=== PATIENT | male | born 1965 | race Caucasian/White ===

== ENCOUNTER 2016-11-19 12:37 | Emergency (ER) | payer BC ==
[~2016-11-19] VITALS: Ht 188 cm; Wt 125.5 kg
[~2016-11-19 12:37] MED LIST: ALBUAER19 INH; DOXY100C76 PO; FEXO1TAB46 PO; FLUT0.15 NAE; FLUT110A INH
[2016-11-19 12:48] VITALS: Ht 188 cm; Wt 125.5 kg
[2016-11-19] MEDS ORDERED: RABIES IMMUNE GLOBULIN (HUMAN) 150 INTER.UNIT/ML 2 ML VIAL IM. ONE (13:00)
[2016-11-19] MEDS ORDERED: RABIES VACCINE (IMOVAX) HUMAN DIPL CELL 2.5 INTER.UNIT/ML SYR IM. ONE (13:00)
[2016-11-19 15:57] VITALS: BP 155/99; PULSE 92; TEMP 37.4; O2SAT 97
--- NOTE | 2016-11-19 16:43 | EMERGENCY ROOM VISIT NOTE ---
History First contact with patient: 12:52 Chief Complaint: RABIES VACCINE Stated Complaint: NEED RABIES VACCINATION History of Present Illness The patient is a 51 year old male who presents to the Emergency Room to undergo the rabies postexposure prophylaxis series. The family dog got into a fight yesterday morning with a raccoon. The raccoon has since been tested positive for rabies. The patient did have a direct exposure to the dog, and was sent here for further management. The patient is certain that the dog has not bitten any family members, and the patient has no current open wounds. Review of Systems 6 system review was performed and was negative except for pertinent positives and negatives as indicated in history of present illness Past Medical/Surgical History Medical Problems: (1) Asthma (2) Diffuse Large B-Cell Lymphoma, Nodes Of Head, Face, And Neck (3) Nicotine Dependence, Chewing Tobacco, Uncomplicated (4) Tobacco Use Surgical Problems: (1) No history of previous surgery Family History FH: diabetes mellitus FH: heart disease Social History Smoking Status: Never Smoker Alcohol Use: none Marital Status: Housing Status: lives with family Occupation Status: employed Current/Historical Medications Scheduled Fexofenadine Hcl (Brittni), 180 MG PO QAM Fluticasone Propionate Hfa (Flovent Hfa 110MCG Inhaler), 2 PUFF INH BID Fluticasone Propionate (Nasal) (Flonase Allergy Relief), 2 SPRAY DELIA QAM Scheduled PRN Albuterol Inhaler (Ventolin Inhaler), 2 PUFFS INH QID PRN for PRN Allergies Coded Allergies: NO KNOWN DRUG ALLERGIES (Verified Allergy, Unknown, NONE, 10/22/15) Physical Exam Vital Signs Date Time Temp Pulse Resp B/P Pulse Ox O2 Delivery O2 Flow Rate FiO2 11/19/16 15:57 37.4 92 18 155/99 97 11/19/16 15:55 92 18 155/99 97 Room Air 11/19/16 12:48 37.4 100 18 216/116 97 Room Air Pain Rating (0-10): 0 Physical Exam CONSTITUTIONAL: Healthy and well nourished. Alert and oriented X 3 with positive affect. HEENT: Normocephalic, atraumatic. Pupils equal, round and reactive. NECK: Full active range of motion without discomfort. RESPIRATORY: Clear to auscultation bilaterally with no wheezing, crackles, rhonchi or stridor. CARDIOVASCULAR: Regular rate and rhythm with no murmurs, rubs or gallops. GASTROINTESTINAL: Bowel sounds present in all quadrants. MUSCULOSKELETAL: Full range of motion of all joints without discomfort. INTEGUMENTARY: No rash or other significant dermatologic conditions noted. NEUROLOGIC: No focal neurologic deficits noted. Medical Decision & Procedures Medications Administered Medications (Trade) Dose Ordered Sig/Brooke Route Start Time Stop Time Status Last Admin Dose Admin Rabies Vaccine Human Diploid Cell (Imovax Rabies) 2.5 interunit ONCE ONCE IM. 11/19/16 13:00 11/19/16 13:01 DC 11/19/16 13:46 2.5 INTERUNIT Rabies Immune Globulin (Imogam Rabies Inj) 2,510 interunit ONCE ONCE IM. 11/19/16 13:00 11/19/16 13:01 DC 11/19/16 14:26 2,510 INTERUNIT ED Course Patient history and physical exam were performed. Nurse's notes were reviewed. The patient was administered human rabies immunoglobulin 20 interunits per kilogram, along with Imovax without any adverse reaction. Because the patient does have a history of lymphoma, he was encouraged to return on days 3, 7, 14 and 28. The patient was happy with plan of care, and voiced understanding of all discharge instructions. Medical Decision Impression Primary Impression: Rabies, need for prophylactic vaccination against Departure Information Dispostion Home / Self-Care Condition GOOD Forms HOME CARE DOCUMENTATION FORM, IMPORTANT VISIT INFORMATION Patient Instructions [facility] Additional Instructions Return on the following days for subsequent injections: Day 3 (11/22) Day 7 (11/26) Day 14 (12/03) Day 28 (12/17)
== END 2016-11-19 15:57 | disposition home or self-care (01) ==
LOC: C.EDB 12:40 → C.EDD 15:57
DX: Z20.3 Contact with and (suspected) exposure to rabies (principal); Z23 Encounter for immunization; J45.909 Unspecified asthma, uncomplicated; F17.200 Nicotine dependence, unspecified, uncomplicated; Z85.72 Personal history of non-Hodgkin lymphomas; Z83.3 Family history of diabetes mellitus; Z82.49 Family history of ischemic heart disease and other diseases of the circulatory system

== ENCOUNTER 2016-11-21 13:16 | Emergency (ER) | payer BC ==
[~2016-11-21 13:16] MED LIST changes: -DOXY100C76 PO
[2016-11-21 13:36] VITALS: TEMP 37
[2016-11-21] MEDS ORDERED: RABIES VACCINE (IMOVAX) HUMAN DIPL CELL 2.5 INTER.UNIT/ML SYR IM. ONE (14:15)
--- NOTE | 2016-11-21 14:51 | EMERGENCY ROOM VISIT NOTE ---
ED Visit Note First contact with patient: 13:59 Chief Complaint: Rabies Return Visit History of Present Illness: This patient is a 51-year-old male who presents to the Emergency Department accompanied by his family for their second Rabies Vaccination Injections. The patient reports that they had no reaction to previous injection. Patient denies the development of any fevers, chills, sweats, or URI symptoms. Medications: Unchanged from previous visit. Allergies: No known drug allergies PMH: Unchanged from previous visit. SHx: The patient lives locally with his family. ROS: All pertinent positive and negative review of systems are appropriately documented in the History of Present Illness. Physical Exam: VITAL SIGNS - Vital signs and Nursing Notes were reviewed. GENERAL -this is a 51-year-old male, well-developed, well-nourished, and in no acute distress. SKIN - Without rashes or lesions. CARDIAC - RRR with normal S1 & S2. No murmurs, rubs, or gallops appreciated. RESPIRATORY - Clear to auscultation bilaterally. No wheezes, rales, or rhonchi appreciated. NEURO - Patient is A&Ox3 and communicates appropriately with the provider. ED Course: Previous ED visit note was reviewed by myself prior to patient evaluation. Patient reports no reaction to the previous injection(s). Patient received 2.5 units of Imovax intramuscularly. Patient was observed in the Emergency Department for greater than 20 minutes prior to discharge without signs of reaction. Patient was educated on worrisome symptoms for return visit to the Emergency Department. Patient discharged to home with the intent for follow-up in the Emergency Department as scheduled for the remainder of their injections. I did become aware after the patient had already left the emergency department that the patient had actually arrived one day early for his rabies injection. The patient had arrived with his 2 sons and I had initially assumed that they had arrived on the same day for their first visit. I contacted our pharmacist, who was unsure how this would affect the treatment schedule and recommended contacting the CDC. I did contact the Department of Health and spoke with a advertising account representative there, who did not feel that this would affect the patient's immunity. They did recommend that the patient receive the third vaccination on day 7 according to the original schedule. I did call the patient's house and spoke with his to relay this information. She verbalized understanding of this treatment plan. Impression: Rabies Prophylaxis Discharge Instructions: You were seen in the Emergency Department today for your Rabies Prophylaxis Injection. [] You should continue to follow the Discharge Instructions outlined for you in your initial Emergency Department visit. For pain or fever control, you can use the following qplv-sxl-uguvjni medicines (if >12 yo): - Regular strength (325mg/tab) Tylenol (acetaminophen) 2 tabs every 4-6 hours as needed. Do not exceed 12 tablets in a 24 hour period. Avoid taking more than 4 grams (4000 mg) of Tylenol per day. This includes any other sources of acetaminophen you may take on a regular basis. - Regular strength (200 mg/tab) Advil (ibuprofen) 1-2 tabs every 4-6 hours as needed. Do not exceed a dose of 3200 mg per day. Return to the emergency department if your symptoms worsen despite treatment course outlined above. Current/Historical Medications Scheduled Fexofenadine Hcl (Brittni), 180 MG PO QAM Fluticasone Propionate (Nasal) (Flonase Allergy Relief), 2 SPRAY DELIA QAM Allergies Coded Allergies: NO KNOWN DRUG ALLERGIES (Verified Allergy, Unknown, NONE, 11/21/16) Vital Signs Date Time Temp Pulse Resp B/P Pulse Ox O2 Delivery O2 Flow Rate FiO2 11/21/16 15:11 81 16 152/88 100 11/21/16 13:36 37.0 85 18 160/95 100 Room Air Medications Administered Medications (Trade) Dose Ordered Sig/Brooke Route Start Time Stop Time Status Last Admin Dose Admin Rabies Vaccine Human Diploid Cell (Imovax Rabies) 2.5 interunit ONCE ONCE IM. 11/21/16 14:15 11/21/16 14:16 DC 11/21/16 14:44 2.5 INTERUNIT Departure Information Impression Primary Impression: Rabies, need for prophylactic vaccination against Dispostion Home / Self-Care Condition GOOD Referrals Umesh Jhaveri M.D. (PCP) Patient Instructions My [facility] Additional Instructions You were seen in the Emergency Department today for your Rabies Prophylaxis Injection. [] You should continue to follow the Discharge Instructions outlined for you in your initial Emergency Department visit. For pain or fever control, you can use the following [id number]-dhktcia medicines (if >12 yo): - Regular strength (325mg/tab) Tylenol (acetaminophen) 2 tabs every 4-6 hours as needed. Do not exceed 12 tablets in a 24 hour period. Avoid taking more than 4 grams (4000 mg) of Tylenol per day. This includes any other sources of acetaminophen you may take on a regular basis. - Regular strength (200 mg/tab) Advil (ibuprofen) 1-2 tabs every 4-6 hours as needed. Do not exceed a dose of 3200 mg per day. Return to the emergency department if your symptoms worsen despite treatment course outlined above.
[2016-11-21 15:11] VITALS: BP 152/88; PULSE 81; O2SAT 100
== END 2016-11-21 15:13 | disposition home or self-care (01) ==
LOC: C.EDB 13:17 → C.EDD 15:13
DX: Z29.14 Encounter for prophylactic rabies immune globulin (principal); Z20.3 Contact with and (suspected) exposure to rabies

== ENCOUNTER 2016-11-26 09:12 | Emergency (ER) | payer BC ==
[~2016-11-26] VITALS: Ht 188 cm; Wt 125.0 kg
[~2016-11-26 09:12] MED LIST changes: +DOXY100C76 PO
[2016-11-26 09:24] VITALS: BP 143/84; PULSE 79; TEMP 36.9; O2SAT 96; Ht 188 cm; Wt 125.0 kg
[2016-11-26] MEDS ORDERED: RABIES VACCINE (IMOVAX) HUMAN DIPL CELL 2.5 INTER.UNIT/ML SYR IM. ONE (09:45)
--- NOTE | 2016-11-26 09:46 | EMERGENCY ROOM VISIT NOTE ---
ED Visit Note First contact with patient: 09:31 CHIEF COMPLAINT: Need third rabies vaccine HISTORY OF PRESENT ILLNESS: This 51-year-old male presents the ER for his third rabies vaccine. The patient did not have any problems with her prior vaccines. REVIEW OF SYSTEMS: 6 system review was performed and was negative unless stated otherwise in history of present illness. PMH: The patient is healthy; see chronic problem list. There are no changes from prior ER visit. SOCIAL HISTORY: Patient lives with his family. The patient denies any tobacco or alcohol use. PHYSICAL EXAM: Vital Signs: Were reviewed Reviewed Nurse's notes. GENERAL: 51- year-old white male appears in no acute distress. MENTAL STATUS: Alert and oriented 3. EMERGENCY DEPARTMENT COURSE: The patient was given Imovax. The patient was discharged home in stable condition. DIAGNOSIS: Post exposure rabies prophylaxis DISCHARGE INSTRUCTIONS: Return to the ER in 7 days for final rabies vaccine Current/Historical Medications Scheduled Fexofenadine Hcl (Brittni), 180 MG PO QAM Fluticasone Propionate (Nasal) (Flonase Allergy Relief), 2 SPRAY DELIA QAM Allergies Coded Allergies: NO KNOWN DRUG ALLERGIES (Verified Allergy, Unknown, NONE, 11/21/16) Vital Signs Date Time Temp Pulse Resp B/P Pulse Ox O2 Delivery O2 Flow Rate FiO2 11/26/16 09:24 36.9 79 18 143/84 96 Room Air Departure Information Referrals Umesh Jhaveri M.D. (PCP) Patient Instructions My [facility]
== END 2016-11-26 09:57 | disposition home or self-care (01) ==
LOC: C.EDB 09:15
DX: Z29.14 Encounter for prophylactic rabies immune globulin (principal); Z20.3 Contact with and (suspected) exposure to rabies

== ENCOUNTER 2016-12-03 09:28 | Emergency (ER) | payer BC ==
[~2016-12-03] VITALS: Ht 188 cm; Wt 112.5 kg
[~2016-12-03 09:28] MED LIST changes: -ALBUAER19 INH; -DOXY100C76 PO; -FLUT110A INH
[2016-12-03 09:32] VITALS: TEMP 36.9; Ht 188 cm; Wt 112.5 kg
[2016-12-03] MEDS ORDERED: RABIES VACCINE (IMOVAX) HUMAN DIPL CELL 2.5 INTER.UNIT/ML SYR IM. ONE (10:15)
[2016-12-03 10:48] VITALS: BP 140/87; PULSE 83; O2SAT 96
--- NOTE | 2016-12-04 12:20 | EMERGENCY ROOM VISIT NOTE ---
ED Visit Note First contact with patient: 09:29 Chief Complaint: Rabies immunization. History of Present Illness: Mr. Nicole is a 51-year-old white male who ambulates into the ED accompanied by his son requesting the fourth of his fifth rabies immunization series. Patient reports his family dog was exposed to a raccoon that tested positive for rabies and it was recommended that he prophylactically be treated for the rabies immunization. Patient does report he has had no previous reactions to his immunizations and he is feeling well today. Review of Systems: As noted above in history of present illness. Past Medical History: As previously noted Physical Examination: Vital Signs: Date Time Temp Pulse Resp B/P Pulse Ox O2 Delivery O2 Flow Rate FiO2 12/03/16 10:48 83 17 140/87 96 12/03/16 09:32 36.9 87 18 139/84 95 Room Air GENERAL: 51-year-old male in no acute distress, nontoxic-appearing, afebrile and hemodynamically stable. NEUROLOGICAL: Awake, alert and oriented to person, place and time. Answering questions appropriately and following commands. ED Course: Patient is assessed as noted above. Patient was given 2.5 interunit of rabies vaccination IM. Patient was held and observed and had no reactions to the medication injection. Patient was educated about tonight's visit and instructed on his treatment plan. Clinical Impression: Rabies immunizations. Disposition: Patient discharged home in stable condition accompanied by his son ; prior to departure he was reassessed and subjectively reported that he was pain and symptom-free. Plan: Patient was encouraged to use ibuprofen or acetaminophen as needed for mild symptoms of body aches and/or mild fevers. Patient was encouraged to return to the ED for any fevers above 101F, uncontrolled pain, uncontrolled vomiting or any new/concerning symptoms.
== END 2016-12-03 10:42 | disposition home or self-care (01) ==
LOC: C.EDB 09:28 → C.EDA 10:42
DX: Z29.14 Encounter for prophylactic rabies immune globulin (principal); Z20.3 Contact with and (suspected) exposure to rabies

== ENCOUNTER 2016-12-17 13:17 | Emergency (ER) | payer BC ==
[~2016-12-17] VITALS: Ht 188 cm; Wt 126.4 kg
[2016-12-17 13:22] VITALS: BP 150/89; PULSE 88; TEMP 36.9; O2SAT 95; Ht 188 cm; Wt 126.4 kg
--- NOTE | 2016-12-17 13:43 | EMERGENCY ROOM VISIT NOTE ---
ED Visit Note First contact with patient: 13:32 Chief Complaint: Rabies Return Visit History of Present Illness: This patient is a 51-year-old male who presents to the Emergency Department ambulatory for their final Rabies Vaccination Injections. The patient will receive one additional vaccine due to a history of cancer. The patient reports that they had no reaction to previous injection. Patient denies the development of any fevers, chills, sweats, or URI symptoms. Medications: Unchanged from previous visit. Allergies: No known drug allergies PMH: Unchanged from previous visit. SHx: Patient lives locally with his family. ROS: All pertinent positive and negative review of systems are appropriately documented in the History of Present Illness. Physical Exam: VITAL SIGNS - Vital signs and Nursing Notes were reviewed. GENERAL -this is a 51-year-old male, well-developed, well-nourished, and in no acute distress. SKIN - Without rashes or lesions. CARDIAC - RRR with normal S1 & S2. No murmurs, rubs, or gallops appreciated. RESPIRATORY - Clear to auscultation bilaterally. No wheezes, rales, or rhonchi appreciated. NEURO - Patient is A&Ox3 and communicates appropriately with the provider. ED Course: Previous ED visit note was reviewed by myself prior to patient evaluation. Patient reports no reaction to the previous injection(s). Patient received 2.5 units of Imovax intramuscularly. Patient was observed in the Emergency Department for greater than 20 minutes prior to discharge without signs of reaction. Patient was educated on worrisome symptoms for return visit to the Emergency Department. Patient discharged to home with the intent for follow-up in the Emergency Department as scheduled for the remainder of their injections. Impression: Rabies Prophylaxis Discharge Instructions: You were seen in the Emergency Department today for your Rabies Prophylaxis Injection. This is your last injection in the series. For pain or fever control, you can use the following yvwd-pzq-uglqlfk medicines (if >12 yo): - Regular strength (325mg/tab) Tylenol (acetaminophen) 2 tabs every 4-6 hours as needed. Do not exceed 12 tablets in a 24 hour period. Avoid taking more than 4 grams (4000 mg) of Tylenol per day. This includes any other sources of acetaminophen you may take on a regular basis. - Regular strength (200 mg/tab) Advil (ibuprofen) 1-2 tabs every 4-6 hours as needed. Do not exceed a dose of 3200 mg per day. Return to the emergency department if your symptoms worsen despite treatment course outlined above. Current/Historical Medications Scheduled Fexofenadine Hcl (Brittni), 180 MG PO QAM Fluticasone Propionate (Nasal) (Flonase Allergy Relief), 2 SPRAY DELIA QAM Allergies Coded Allergies: NO KNOWN DRUG ALLERGIES (Verified Allergy, Unknown, NONE, 12/17/16) Vital Signs Date Time Temp Pulse Resp B/P Pulse Ox O2 Delivery O2 Flow Rate FiO2 12/17/16 13:22 36.9 88 18 150/89 95 Room Air Departure Information Impression Primary Impression: Rabies, need for prophylactic vaccination against Dispostion Home / Self-Care Condition GOOD Referrals Umesh Jhaveri M.D. (PCP) Patient Instructions My [facility] Additional Instructions You were seen in the Emergency Department today for your Rabies Prophylaxis Injection. This is your last injection in the series. For pain or fever control, you can use the following mlne-atc-vrsmqvp medicines (if >12 yo): - Regular strength (325mg/tab) Tylenol (acetaminophen) 2 tabs every 4-6 hours as needed. Do not exceed 12 tablets in a 24 hour period. Avoid taking more than 4 grams (4000 mg) of Tylenol per day. This includes any other sources of acetaminophen you may take on a regular basis. - Regular strength (200 mg/tab) Advil (ibuprofen) 1-2 tabs every 4-6 hours as needed. Do not exceed a dose of 3200 mg per day. Return to the emergency department if your symptoms worsen despite treatment course outlined above.
[2016-12-17] MEDS ORDERED: RABIES VACCINE (IMOVAX) HUMAN DIPL CELL 2.5 INTER.UNIT/ML SYR IM. ONE (13:45)
== END 2016-12-17 13:51 | disposition home or self-care (01) ==
LOC: C.EDB 13:19 → C.EDD 13:51
DX: Z29.14 Encounter for prophylactic rabies immune globulin (principal); Z20.3 Contact with and (suspected) exposure to rabies

== ENCOUNTER → 2017-02-25 | Outpatient (CLI) | payer BC ==
--- NOTE | 2017-02-26 05:04 | PAP/PSG TECHNICIAN REPORT ---
[facility] [employer] Worker Polysomnogram Report Study name: None Report date: 02/26/2017 Study date: 02/25/2017 Referring Physician: Anum Galaviz M.D. Name: CATHERINE ANJEL Kourtney Interpreting Physician: Vi Galaviz M.D. Date of : 1965 Auto Body Worker: [facility] Sex: Male Age: 51 StudyType: PSG Weight: 274 lbs Height: 51 years, Height 6' 2" BMI: 35.18 Medications: none Patient History 51 yr. old male here for a titration sleep study to ensure resolution of hypoxemia. Patient had a HST that showed an SAVANNAH of 11.5(18.8 supine). Patients [place] Sleepiness Scale Score is 11/24. Parameters Monitored NPSG: E1-M2, E2-M1, Fp1-M2, Fp2-M1, F3-M2, F4-M2, F4-M1, C3-M2, C4-M2, C4-M1, O1-M2, O2-M2, O2-M1, T3-M2, T4-M1, P3-M2, P4-M1, CHIN1, CHIN2, HR, EKG, Legs, PFLOW, SNOR, FLOW, CFLOW, Tidal Volume, THOR, ABDO, SpO2, PLTH, CPRESS, ETCO2 Wave, ETCO2, pH Sleep Architecture Sleep Stages Time at Lights Off 9:57:35 PM STAGES Time (min.) TST (%) Time at Lights On 4:50:35 AM Wake 37.5 -- Total Recording Time (TRT) 412.50 min. N1 17.5 5 Total Sleep Period (TSP) 410.0 min. N2 239.5 64 Total Sleep Time (TST) 375.0min. N3 69.0 18 Awake Time 37.5 min. REM 49.0 13 Wake after Sleep Onset 35.0 min. Sleep Efficiency (SE) 91 % Sleep Onset Latency (MARIALUISA) 3.0 min. Number of Stage 1 Shifts None Awakenings 19 Stage Changes 89 Number of REM periods 6 REM 49.0 13 REM Latency 84.5 min. NREM 326.0 87 Body Position Analysis Supine Right Left Side Prone Vertical Total Sleep Time (min.) 337.1 22.8 42.5 65.32 0.0 0.0 Total Sleep Time (%) 83% 6% 11% 17 0% N/A% Total Sleep Time REM (min.) 37.5 0.0 11.5 None 0.0 0.0 Total Sleep Time NREM (min.) 272.2 22.8 31.0 None 0.0 0.0 Intermittent Wake (min.) 27.4 0.6 9.4 None 0.0 0.0 Total Sleep Period (%) 82% None None None None None Arousals Myoclonus (PLM) * Events Count Index Events Count Index Spontaneous 3 0 Events Awake (PLMW) 61 97.6 Respiratory 3 0.6 Events Asleep w/ Arousal (PLMA) 18 2.9 PLM 17 3 Events Asleep w/o Arousal (PLMS) 317 50.7 Snoring 6 1 Total Asleep 335 53.6 Total 29 5 Total 396 58 Respiratory Analysis * CA OA MA CH H RERA Total Count 0 0 0 0 22 1 22 Index 0.0 0.0 0.0 0 3.5 0 3.5 Mean Duration 0.0 0.0 0.0 0.00 23.7 20.5 24.1 Longest Duration 0.0 0.0 0.0 0.00 0.0 20.5 40.3 Respiratory Event Summary Total Supine ~Supine Right Left Prone REM NREM Apneas Count 0 0 0 0 0 N/A 0 0 Index 0.0 0 0 0.0 0.0 N/A 0 0 Hypopneas (4% Desat) Count 22 21 1 1 0 N/A 1 21 Index 3.5 4.1 1 2.6 0.0 N/A 1.2 3.9 Apneas & All Hypopneas Count 22 21 1 1 0 N/A 1 21 Index 3.5 4 1 3 0 N/A 1.2 3.9 Respiratory Events ([employer]+All Hyp+RERA) Count 22 21 1 1 0 N/A 1 21 Index 3.5 4 1 2.6 0.0 N/A 1.2 3.9 Respiratory Related Arousal Count 3 21 0 0 0 N/A 0 4 Index 0.6 1 0 0 0 N/A 0 1 Snoring Analysis Supine Right Left Prone REM NREM Total Snore duration 3.7 min Snores count 143 2 0 N/A 3 142 145 Snore mean duration 1.5 Sec Snores index 28 5 0 N/A 3.7 26.1 23.2 TST with snoring (%) 1.0% Desaturation Event Summary: Minimum %SpO2 Event Count Mean/Min/Max Duration(sec.) Desaturation Index % Time In Bed > 90 34 24.9 / 7.3 / 57.0 5.7 95.8 86 - 90 1 10.3 / 10.3 / 10.3 3.8 4.2 81 - 85 0 N/A 0.0 0.0 76 - 80 0 N/A 0.0 0.0 71 - 75 0 N/A 0.0 0.0 66 - 70 0 N/A 0.0 0.0 61 - 65 0 N/A 0.0 0.0 56 - 60 0 N/A 0.0 0.0 51 - 55 0 N/A 0.0 0.0 < 50 0 N/A 0.0 0.0 Total REM NREM Awake <50% 0.0 min. 0.0 min. 0.0 min. 0.0 min. 51 - 60% 0.0 min. 0.0 min. 0.0 min. 0.0 min. 61 - 70% 0.0 min. 0.0 min. 0.0 min. 0.0 min. 71 - 80% 0.0 min. 0.0 min. 0.0 min. 0.0 min. 81 - 90% 16.0 min. 0.0 min. 15.7 min. 0.3 min. 91 - 100% 360.7 min. 45.8 min. 286.5 min. 28.4 min. Average 94 95 93 94 Minimum SpO2 83 92 85 83 Desaturation Event Index 4.9 1.2 4.8 11.2 # Desat. Events below 89% 6 N/A 5 1 Time(%) with Saturation below 89% 0.3 0.0 0.3 0.0 Time(min.) with Saturation below 89% 1.1 0.0 1.0 0.1 Time (mins) REM (mins) NREM (mins) % of TST SpO2 Below 90% 21 N/A N21 1.2 SpO2 Below 88% 2 0 0 0 Heart Rate Analysis Min (bpm) Max (bpm) Average (bpm) Awake 42 127 74 NREM 60 127 72 REM 63 127 71 Overall 60 127 72 Supplemental O2 Values Minimum O2 level: None Value Start Time End Time Auto Body Worker Comments Mr. Nicole slept in the right, left, and supine positions. No cardiac arrhythmia notes. PLMs noted. No bruxism noted. CPAP was initiated at +4 CMH2O room air and up-titrated to a level of +11 CMH2O no Cflex, which nearly eliminated all respiratory events and snoring. Patients own ResMed F10, was used during titration. Mr. Nicole awoke to use the restroom once during the night. Mr. Nicole stated, that was a normal night. The final report will be interpreted and signed by a sleep physician. The completed physician report will then be placed in the patient medical record. Therapy Event: Therapy (cm H20) 4 5 6 7 8 9 10 11 Total Time at Pressure (min.) 9.4 7.1 11.5 117.4 83.3 22.5 15.8 145.6 TST at Pressure (min.) 6.4 7.1 11.5 102.9 75.3 22.0 8.4 141.5 # Periods 1 1 1 1 1 1 1 1 Sleep Onset (min.) 3.0 0.0 0.0 0.0 0.0 0.0 0.0 1.1 REM Onset (min.) N/A N/A N/A 59.0 70.7 N/A N/A 24.1 Sleep Efficiency % 68 100 100 87 90 97 53 97 Wakefulness (%) 31.8 0.0 0.0 12.4 9.6 2.2 46.9 2.8 Wakefulness (min.) 3.0 0.0 0.0 14.5 8.0 0.5 7.4 4.1 NREM 1 (%) 10.6 0.0 4.4 4.3 6.2 3.8 6.3 2.7 NREM 1 (min.) 1.0 0.0 0.5 5.0 5.1 0.9 1.0 4.0 NREM 2 (%) 57.6 100.0 95.6 35.7 74.0 93.9 46.8 57.7 NREM 2 (min.) 5.4 7.1 11.0 41.9 61.7 21.1 7.4 84.0 NREM 3 (%) 0.0 0.0 0.0 37.5 4.2 0.0 0.0 14.8 NREM 3 (min.) 0.0 0.0 0.0 44.0 3.5 0.0 0.0 21.5 REM (%) 0.0 0.0 0.0 10.2 6.0 0.0 0.0 22.0 REM (min.) 0.0 0.0 0.0 12.0 5.0 0.0 0.0 32.0 # Arousals 1 1 2 10 8 0 4 3 Arousal Index 9.3 8.5 10.5 5.8 6.4 0.0 28.6 1.3 # Snore 18 41 22 52 7 2 0 3 Snore Index 167.7 348.3 115.2 30.3 5.6 5.5 0.0 1.3 AHI 9.3 17.0 5.2 1.7 5.6 10.9 21.4 0.4 AHI Supine 9.3 17.0 5.2 1.7 9.1 10.9 21.4 0.5 AHI Non-Supine N/A N/A N/A N/A 1.7 N/A N/A 0.0 NREM AHI 9.3 17.0 5.2 2.0 6.0 10.9 21.4 0.0 REM AHI N/A N/A N/A 0.0 0.0 N/A N/A 1.9 RDI 9.3 17.0 5.2 1.7 5.6 10.9 21.4 0.4 # Obstructive 0 0 0 0 0 0 0 0 # Central Ap 0 0 0 0 0 0 0 0 # Mixed 0 0 0 0 0 0 0 0 # Hypopneas 1 2 1 3 7 4 3 1 RERAS 0 0 0 0 1 0 0 0 Total Respiratory Events 1 2 1 3 7 4 3 1 Time Below SpO2 89.00% (min.) 0.0 0.0 0.0 0.3 0.5 0.1 0.0 0.0 Mean NREM SpO2 (%) 92 92 92 93 93 93 95 95 Mean REM SpO2 (%) N/A N/A N/A 94 94 N/A N/A 95 Mean Sleep SpO2 (%) 92 92 92 93 93 93 95 95 Min NREM SpO2 (%) 89 89 89 88 85 88 90 91 Min REM SpO2 (%) N/A N/A N/A 92 93 N/A N/A 92 Position Supine (min.) 6.4 7.1 11.5 102.9 39.5 22.0 8.4 112.0 Position Non-supine (min.) 0.0 0.0 0.0 0.0 35.8 0.0 0.0 29.5 LM Index Sleep 28.0 8.5 15.7 77.0 29.5 8.2 42.8 63.6 LM Index NREM 28.0 8.5 15.7 79.2 31.6 8.2 42.8 78.9 LM Index REM N/A N/A N/A 60.0 0.0 N/A N/A 11.3 Mean Heart Rate (bpm) 77 78 79 76 71 70 69 68 Min Heart Rate (bpm) 72 75 66 68 63 63 63 60
--- NOTE | 2017-03-09 22:29 | POLYSOMNOGRAPH REPORT ---
REFERRING PERSON: Vi Galaviz MD SPEECH INSTRUCTOR: Aurora Adame. Mr. Nicole is a 51-year-old male, sent for CPAP titration study to ensure hypoxemia has resolved as well as apnea with CPAP therapy. He had a home study which showed an AHI of 11.5 and supine AHI of 18.8. His [place] sleepiness scale score on the evening of this study is 11. BMI is 35.18. Following the technical and digital specifications of the [employer] ([employer]) a standard diagnostic polysomnogram was performed monitoring EEG, EOG, EMG (chin and leg deviations), oxygen saturation, body position, digital video, respiratory effort and airflow. The sleep Stage and event scoring was based on the AASM Manual for the Scoring of Sleep and Associated Events 2007 edition. Apneas are defined as a drop in the peak thermal sensor excursion by >90% of baseline for at least 10 seconds. Hypopneas were scored using the 4% oxygen desaturation rule (4A-[employer]) and a decrease in the nasal pressure excursions by >30% of baseline for at least 10 seconds. Respiratory effort-related arousal (RERA's) is defined as a sequence of breaths lasting at least 10 seconds characterized by increasing respiratory effort or flattening of the nasal pressure waveform leading to an arousal from sleep when the sequence of breaths does not meet criteria for an apnea or hypopnea. Apnea Hypopnea index (AHI) is defined as the number of apneas and hypopneas occurring in an hour of sleep. Respiratory disturbance index (RDI) is defined as the number of apneas, hypopneas, and RERA's occurring in an hour of sleep. Mr. Nicole's total sleep period time was 410 minutes. Total sleep time was 375 minutes. Sleep efficiency was 91%. Latency to sleep onset was 3 minutes with wake after sleep onset of 35 minutes. Total non-REM sleep time was 326 minutes. He spent 5% of that time in N1 sleep, 64% in N2 sleep and 18% in N3 sleep. REM latency was 84.5 minutes. Total REM sleep time was 49 minutes or 13% of total sleep time. There were 29 cortical arousals from sleep; 6 of these arousals were due to snoring, 17 due to periodic limb movements of sleep, 3 were due to respiratory events and 3 were spontaneous. There were 335 periodic limb movements noted on this test. Limb movement index was 53.6. Limb movement with arousal index was 2.9. There were no central obstructive or mixed apneas on this titration. There were 22 hypopneas and 1 RERA. Apnea-hypopnea index was normal at 3.5. There were 145 snoring events recorded. Total sleep time with snoring was 1%. Mean saturation was 94% with desaturations to 83%. Saturations were less than 89% for 1.1 minutes of recorded time. There was no cardiac ectopy noted on this titration. Heart rates ranged from a low of 60 beats per minute to a high of 127 beats per minute during sleep. As stated above, this was a CPAP titration study. Mr. Nicole was titrated using his own ResMed F10 mask during this titration. He was titrated from a CPAP pressure of 4 to a CPAP pressure of 11 over the course of the night. Increasing pressures were needed to prevent apneas, hypopneas and arousals. He was observed on a pressure of 11 for 141.5 minutes of sleep time. There were 32 minutes of supine REM sleep on this pressure. AHI and RDI on this pressure were both 0.4 and there were no desaturations less than 89%. IMPRESSION AND PLAN: Successful CPAP titration study in this patient with known obstructive sleep apnea. It appears that he did well on CPAP at a pressure of 11. A download from his machine can be reviewed in one month; both to check compliance as well as AHI and further pressure adjustments can occur at that time.
== END | disposition home or self-care (01) ==
LOC: C.NEUR 21:00
PROVIDERS: ATTEND Family Medicine
DX: G47.33 Obstructive sleep apnea (adult) (pediatric) (principal); R09.02 Hypoxemia